=== PATIENT | male | born 1970 | race Two or more races ===

== ENCOUNTER 2018-07-13 16:45 | Emergency (ER) | payer OTHER ==
[~2018-07-13] VITALS: Ht 172.7 cm; Wt 89.8 kg
[2018-07-13 16:51] VITALS: BP 102/76
[2018-07-13] MEDS ORDERED: EPINEPHrine HCL 1 MG/1 ML AMP SC ONE (17:45)
[2018-07-13] MEDS ORDERED: diphenhdrAMINE HCL 50 MG/1 ML VL IM ONE (17:45)
[2018-07-13] MEDS ORDERED: methylPREDNISolone SOD SUCC 125 MG/2 ML VL IM ONE (17:45)
== END 2018-07-13 18:22 | disposition home or self-care (01) ==
LOC: ER 16:51
DX: L25.9 Unspecified contact dermatitis, unspecified cause (principal)
CPT/HCPCS: 96372; 99284; J0171; J2930

== ENCOUNTER 2018-07-30 11:32 | Emergency (ER) | payer MEDICAID, OTHER ==
[~2018-07-30] VITALS: Ht 172.7 cm; Wt 86.2 kg
[2018-07-30 11:51] VITALS: BP 127/77
== END 2018-07-30 17:15 | disposition home or self-care (01) ==
LOC: ER 11:32
DX: B35.9 Dermatophytosis, unspecified (principal)

== ENCOUNTER 2019-03-12 18:14 | Emergency (ER) | payer MEDICAID ==
[~2019-03-12] VITALS: Ht 172.7 cm; Wt 86.2 kg
[2019-03-12 18:25] VITALS: BP 109/63
== END 2019-03-12 22:01 | disposition home or self-care (01) ==
LOC: ER 18:19
DX: S23.41XA Sprain of ribs, initial encounter (principal); M94.0 Chondrocostal junction syndrome [Tietze]; X58.XXXA Exposure to other specified factors, initial encounter; Y93.89 Activity, other specified; Y92.89 Other specified places as the place of occurrence of the external cause; Y99.8 Other external cause status
CPT/HCPCS: 71046

== ENCOUNTER 2021-06-25 21:46 | Emergency (ER) | payer MEDICAID ==
[~2021-06-25] VITALS: Ht 172.7 cm; Wt 86.2 kg
[2021-06-26 02:18] VITALS: BP 116/75
[2021-06-26] MEDS ORDERED: FLUORESCEIN SOD OPTH TEST STRIP LEFTEYE ONE (06:15)
[2021-06-26] MEDS ORDERED: TETRACAINE HCL 0.5% OPTH(EYE) SOLN 4ML LEFTEYE ONE (06:15)
== END 2021-06-26 06:49 | disposition home or self-care (01) ==
LOC: ER 21:46
DX: S00.252A Superficial foreign body of left eyelid and periocular area, initial encounter (principal); W45.8XXA Other foreign body or object entering through skin, initial encounter; Y93.89 Activity, other specified; Y92.89 Other specified places as the place of occurrence of the external cause; Y99.8 Other external cause status
CPT/HCPCS: 65222

== ENCOUNTER 2024-05-04 10:09 | Emergency (ER) | payer MEDICAID ==
[~2024-05-04] VITALS: Ht 172.7 cm; Wt 91.0 kg
[2024-05-04 10:34] VITALS: BP 128/95; PULSE 94; RESP 18; TEMP 98.7; O2SAT 96
[2024-05-04] MEDS: LIDOCAINE 1% HCL (LOCAL ANESTH.) INJ 20ML MDV IJ ONE (10:53)
[2024-05-04] MEDS ORDERED: CEPH500C PO (11:07)
[2024-05-04] MEDS: TETANUS-DIPTH-ACEL PERTUSSIS 0.5ML SYR Tdap IM ONE (11:36)
== END 2024-05-04 11:39 | disposition home or self-care (01) ==
LOC: ER 10:09
DX: S71.112A Laceration without foreign body, left thigh, initial encounter (principal); Z79.899 Other long term (current) drug therapy; W45.8XXA Other foreign body or object entering through skin, initial encounter; Y93.89 Activity, other specified; Y92.89 Other specified places as the place of occurrence of the external cause; Y99.8 Other external cause status
CPT/HCPCS: 12002; 99283; J2001; 90715

== ENCOUNTER 2024-11-08 16:04 | Emergency (ER) | payer MEDICAID ==
[~2024-11-08] VITALS: Ht 172.7 cm; Wt 96.6 kg
[~2024-11-08 16:04] MED LIST: CEPH500C PO
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
[2024-11-08] MEDS ORDERED: CYCL-839 PO (17:24)
[2024-11-08] MEDS ORDERED: IBU600T PO (17:24)
[2024-11-08 17:57] VITALS: BP 101/70; PULSE 74; RESP 17; TEMP 98.7; O2SAT 97
== END 2024-11-08 18:01 | disposition home or self-care (01) ==
LOC: ER 16:04
DX: S29.012A Strain of muscle and tendon of back wall of thorax, initial encounter (principal); V49.88XA Car occupant (driver) (passenger) injured in other specified transport accidents, initial encounter; Y93.89 Activity, other specified; Y92.89 Other specified places as the place of occurrence of the external cause; Y99.8 Other external cause status
CPT/HCPCS: 72070